=== PATIENT | female | born 1970 | race Caucasian/White ===

== ENCOUNTER 2024-08-08 18:57 | Emergency (ER) | payer OTHER, SELFPAY ==
--- OUTSIDE RECORDS SUMMARY | 2024-08-08 19:04 | XMS_ITS | Clinical Summary ---
Author Organization [facility] Address [address] [place] [address] Care Team Providers Care Sand Caster Apprentice Name Role Phone Leigh Mckeon APRN-CASER UP Unavailable Unavailable Lisa Manzano PA-C Primary Care Provider [phone] Source Comments [facility],non-owned Affiliates and Associated Physician Practices is amultiple site organization consisting of ambulatory clinics and hospital sitesin [place], [place], [place] and [place]. This disclosure is being madepursuant to the Care Everywhere program and may not contain all information available regarding this patient. Last updated 17.[facility] Allergies No known active allergies Medications * This document contains information received from the source organization and may not represent a complete record from that organization. * Be aware that medications may not be up to date on this document. Alwaysverify current medications with the patient. multivitamin daily (THERAGRAN) tablet Take 1 Tab by mouth daily with food Active fluticasone propionate (FLONASE) 50 MCG/ACT nasal sprayIndication s:Non-recurrent acute allergic otitis media of right ear [place] 2 (two) sprays into each nostril once daily 15.8 Each 2 Active Additional Information Patient not taking.Reported on 07/27/2021 loratadine (CLARITIN) 10 MG tablet Take 1 (one) tablet by mouth once daily 30 tablet 2 Active levothyroxine (SYNTHROID) 150 MCG tablet Take 1 (one) tablet by mouth once daily 90 tablet 1 2 Active escitalopram (LEXAPRO) 20 MG tabletIndicatio ns:Depression with anxiety Take 1 (one) tablet by mouth once daily 90 tablet 1 2 Active vitamin D, ergocalciferol, (DRISDOL) 1.25 MG (45098 UT) capsule Take 1 (one) capsule by mouth every 7 days 4 capsule 2 2 Active Active Problems Problem Noted Date Diagnosed Date Abnormal vaginal Pap smear-MONITORED BY DR. SAMANTHA MCINTYRE 06/19/2018 Inclusion cyst 12/22/2015 Cyst of skin and subcutaneous tissue 11/17/2015 Acquired hypothyroidism 05/19/2015 Depression with anxiety 05/19/2015 Smoker 06/13/2014 Resolved Problems Problem Noted Date Diagnosed Date Resolved Date Obesity (BMI 30.0-34.9) 11/15/201608/2017 Hypothyroidism 07/04/2013 05/19/2015 Immunizations Immunization Administration Dates Next Due INFLUENZA VACCINE, TRIV. (AF LURIA, FLUZONE TRIVALENT; 6MO+) (IIV3) 01/15/2014,01/24/2013 Covid Pfizer primary Monoval ent 12+ yr 0.3ml 05/11/2021 Covid Pfizer primary monoval ent 12+ yr 0.3mL Purple cap 08/21/2020 INFLUENZA VACCINE 02/06/2018, 7,02/22/2017,2015,05/19/2015,02/12/2015 INFLUENZA VACCINE, QUADR. (F LUZONE; FLULAVAL; FLUARIX; AFLURIA QUADRIVALENT; 6MO+), 0.5 ML (IIV4) 02/12/2021,02/12/2019,02/05/2018 TD VACCINE 11/24/2002 TDAP (7yrs+) 10/20/2015 Family History Medical History Relation Name Comments Heart Disease Maternal Grandfather Heart Disease Maternal Grandmother Liver Disease Mother Cancer - Breast Paternal Aunt great aunt great pat a unt Heart Disease Paternal Grandfather Aneurysm Paternal Grandmother Cancer - Ovarian Neg Hx Relation Name Status Comments Father Alive Maternal Grandfather Maternal Grandmother Mother Paternal Aunt great aunt Paternal Grandfather Paternal Grandmother Social History Tobacco Use Types Packs/Day Years Used Date Smoking Tobacco: Former Cigarettes 1 25 0 07/03/1994 - 07/04/2019 Smokeless Tobacco: Never Tobacco Cessation:Ready to Q uit: No; Counseling Given: Yes Alcohol Use Standard Drinks/Week Comments Yes 0 (1 standard drink = 0.6 oz pur e alcohol) occ PHQ-2 Answer Date Recorded PHQ2 TOTAL SCORE 6 07/27/2021 Comments No Sex and Gender Information Value Date Recorded Sex Assigned at Not on file Legal Sex Female 10:45 AM CDT Gender Identity Not on file Sexual Orientation Not on file Last Filed Vital Signs Vital Sign Reading Time Taken Comments Blood Pressure 120/78 07/27/2021 11:18 AM CDT Pulse 70 07/27/2021 11:18 AM CDT Temperature 36.6 C (97.9 F) 07/27/2021 11:18 AM CDT Respiratory Rate 18 05/11/2021 4:37 PM DREDGEMASTER Oxygen Saturation 98% 07/27/2021 11:18 AM CDT Inhaled Oxygen Concentration - - Weight 105.7 kg (233 lb) 07/27/2021 11:18 AM CDT Height 165.1 cm (5' 5 ) 07/27/2021 11:18 AM CDT Body Mass Index 38.77 07/27/2021 11:18 AM CDT Plan of Treatment Health Maintenance Due Date Last Done Comments COLOGUARD (AGES 45-75) - COLON CA SCREENING 1972 COLON MONITORING 1972 COLONOSCOPY - COLON CA SCREENING 1972 CT COLONOGRAPHY - COLON CA SCREENING 1972 Colorectal Cancer Screening 1972 FIT - COLON CA SCREENING 1972 FLEX SIG - COLON CA SCREENING 1972 HEPATITIS B VACCINE (1 of 3 - 19+ 3-dose series) 08/11/1991 PAP with HPV 04/18/2022 04/18/2017, 02/16/2016 PNEUMOCOCCAL VACCINE 50+ (1 of 1 - PCV) 2022 ZOSTER VACCINE (1 of 2) 2022 MAMMOGRAM 01/19/2023 01/19/2021, 0807/2019, 07/17/2018, Additional history exists COVID-19 VACCINE ( season) 2023 05/11/2021, 08/21/2020, 07/31/2020 DEPRESSION SCREENING 04/04/2024 SCREENING FOR DIABETES 07/27/2024 2, 07/27/2021, 01/19/2021, Additional history exists INFLUENZA VACCINE (Season Ended) 2024 02/12/2021, 02/12/2019, 02/06/2018, Additional history exists DTAP/TDAP/TD VACCINES (3 - Td or Tdap) 10/19/2025 10/20/2015, 11/24/2002 LIPID TESTING 01/19/2026 01/19/2021, 06/02, 04/25/2017, Additional history exists HEPATITIS C SCREENING Completed 02/16/2016 HIV SCREENING Completed 02/16/2016 HIB VACCINE Aged Out No longer eligi ble based on patient's age to complete this topic HPV VACCINE Aged Out No longer eligi ble based on patient's age to complete this topic MENINGOCOCCAL (Group B) VACCINE SHARED DECISION-MAKING Aged Out No longer eligible based on patient's age to complete this topic MENINGOCOCCAL GROUPS A/C/Y/W VACCINE Aged Out No longer eligible based on patient's age to complete this topic Procedures Procedure Name Priority Date/Time Associated Diagnosis Comments HEMOGLOBIN A1C Routine 07/27/2021 11:52 AM CDT Fatigue, unspecified type-for the last few months, since having covid LIPID PROFILE Routine 01/19/2021 1:05 PM CDT Routine health maintenance MAMMO BILAT SCREENING Routine 01/19/2021 11:59 AM CDT Visit for screening mammogram PAP LB CT+GC VONNIE +HPV HR DNA Routine 04/18/2017 10:25 AM DREDGEMASTER Cervical smear, as part of routine gynecological examination Special screening examination for human papillomavirus (HPV) HEPATITIS C AB W RFLX VERIFICATION Routine 02/16/2016 10:13 AM DREDGEMASTER Well woman exam with routine gynecological exam Concern about STD in female without diagnosis Unprotected sexual intercourse HIV-1 HIV-2 ANTIGEN/ANTIBODY W RFLX Routine 02/16/2016 10:13 AM DREDGEMASTER Well woman exam with routine gynecological exam Concern about STD in female without diagnosis Unprotected sexual intercourse from Last 3 Months or Most Recently Relevant to Health Maintenance Results * HEMOGLOBIN A1C (07/27/2021 11:52 AM CDT) Hemoglobin A1c 4.6 4.2 - 5.6 % 07/27/2021 5:42 PM CDT [facility] Estimated Average Glucose 85 mg/dL 07/27/2021 5:42 PM CDT [facility] Blood BLOOD SPECIMEN WITH EDTA / Unknown Venipuncture / Unknown 07/27/2021 11:52 AM CDT 07/27/2021 11:52 AM CDT Narrative [facility] - 07/27/2021 5:42 PM CDT The following cutoff levels are recommended by [place] [employer]. A1c > 6.5% : considered as diabetes if two separate tests >6.5% or in an appropriate clinical setting. A1c 5.7% - 6.4% : considered as prediabetes (suggest increased risk for diabetes and cardiovascular disease) Control target level: Should be individualized. < 7 for general (non-) , < 8% less stringent goal, < 6.5 more stringent goal. Hemoglobin A1c measurements are used as an aid in the diagnosis of diabetic mellitus, as an aid to identify patients who may be at the risk for developing diabetic mellitus, and for the monitoring long-term blood glucose control in individuals with diabetes mellitus. This test should not replace glucose testing for patients with Type 1 diabetes, pediatric patients, or women. Falsely low HbA1c results may be observed in patients with clinical conditions that shorten erythrocyte life span or decrease mean erythrocyte age such as the presence of unstable hemoglobin variants, elevated hemoglobin F level or other causes of hemolytic anemia . HbA1c may not accurately reflect glycemic control when clinical conditions that affect erythrocyte survival are present. Severe Iron deficiency anemia may yield falsely high results. Hemoglobin A1c assay should not be used to diagnose or monitor diabetes in patients with malignancy, recent blood transfusion, chronic kidney or liver disease. This method may yield falsely low results when hemoglobin (HbF) exceeds 5% in the specimen. us Lisa Manzano PA-C LAB - CHEMISTRY ORDERABLES Fin al Result [facility] [address] [place] [address], [place] * (ABNORMAL) LIPID PROFILE (01/19/2021 1:05 PM CDT) Cholesterol 150 <200 mg/dL 01/19/2021 5:58 PM CDT [facility] Triglycerides 65 <150 mg/dL 01/19/2021 5:58 PM CDT [facility] HDL Cholesterol 39(L) >40 mg/dL 5:58 PM CDT [facility] Chol HDL Ratio 3.8 1.0 - 6.0 01/19/2021 5:58 PM CDT [facility] LDL Calculated 98 65 - 130 mg/dL 01/19/2021 5:58 PM CDT [facility] VLDL Calculated 13 <=30 mg/dL 5:58 PM CDT [facility] Blood BLOOD SPECIMEN / Unknown Venipuncture / Unknown 01/19/2021 1:05 PM CDT 01/19/2021 1:05 PM CDT Narrative [facility] - 01/19/2021 5:58 PM CDT Lipid Profile Comment: CHOLESTEROL LEVEL..................CLINICAL INTERPRETATION LESS THAN 200 MG/DL..............................DESIRABLE 200-239 MG/DL..............................BORDERLINE HIGH GREATER THAN 240 MG/DL................................HIGH LDL-CHOLESTEROL LEVEL..............CLINICAL INTERPRETATION LESS THAN 100 MG/DL................................OPTIMAL 100-129 MG/DL.................................NEAR OPTIMAL GREATER THAN 160 MG/DL...........................HIGH RISK HDL RISK LEVEL GREATER THEN 60 MG/DL............................DECREASED 40-60 MG/DL........................................AVERAGE LESS THAN 40 MG/DL...............................INCREASED TRIGLYCERIDE LEVEL..................CLINICAL INTERPRETATION LESS THAN 150 MG/DL...............................DESIRABLE 150-199 MG/DL...............................BORDERLINE HIGH 200-499 MG/DL..........................................HIGH GREATER THAN 500..................................VERY HIGH THE NATIONAL CHOLESTEROL EDUCATION PROGRAM HAS SET THE ABOVE GUIDELINES (REFERANCE VALUES) FOR CHOLESTEROL AND HDL. RISK ASSOCIATED WITH CHOLESTEROL/HDL RATIOS RISK....................MALE RATIO.............FEMALE RATIO 1/2 AVERAGE.................<3.4.......................<3.3 LOW RISK.................... 4.0 ...................... 3.8 AVERAGE..................... 5.0 ...................... 4.5 2X AVERAGE.................. 9.5 ...................... 7.0 3X AVERAGE...................>23........................>11 us Lisa Manzano PA-C LAB - CHEMISTRY ORDERABLES Fin al Result Performing Organization Address City/State/[facility] Co de Phone Number [facility] [address] * EBER SCREENING BILATERAL DIGITAL [id number] (01/19/2021 11:59 AM CDT) Anatomical Region Laterality Modality Breast Bilateral Mammography 01/19/2021 2:41 PM CDT Impressions 01/19/2021 2:43 PM CDT BI-RADS category : 2 Benign Findings. RECOMMENDATION: Routine annual screening. A). A negative report should not delay a biopsy if a dominant or clinically suspicious mass is present. B). Adenosis and dense breasts may obscure an underlying neoplasm. C). Study interpreted with computer-aided detection. MQSA BI-RADS Categories: Category 0 - needs additional imaging evaluation. Category 1 - negative. Category 2 - benign findings. Category 3 - probably benign findings, but short interval follow up is recommended. Category 4 - suspicious abnormality-biopsy should be considered. Category 5 - highly suggestive of malignancy and appropriate action should be taken. *Reading Radiologist: Maciej Oneill on 01/19/2021 at 2:43 PM Narrative 01/19/2021 2:43 PM CDT PROCEDURE: MAMMO BILAT SCREENING 01/19/2021 11:59 AM HISTORY: Encounter for screening mammogram for malignant neoplasm of breast. FINDINGS AND IMPRESSION: COMPARISON: Prior study/studies dating back to 2016 FINDINGS: Digital 2-D mammography with CAD was performed and reviewed. 3-D tomosynthesis was performed of the breast(s) in the MLO projection and reviewed. BREAST COMPOSITION: There are scattered areas of fibroglandular density. No masses or abnormal calcifications documented. No change has occurred. Lisa Manzano PA-C MAMMO ORDERABLES Final Result * (ABNORMAL) PAP LB CT+GC VONNIE +HPV HR DNA (04/18/2017 10:25 AM DREDGEMASTER) Diagnosis (A) [facility] ACCOUNT BILL Comment: EPITHELIAL CELL ABNORMALITY. LOW-GRADE SQUAMOUS INTRAEPITHELIAL LESION (LGSIL); MILD DYSPLASIA IS PRESENT. Recommendation (A) [facility] ACCOUNT BILL Comment:Suggest follow up as clinically appropriate. Specimen Adequacy [facility] ACCOUNT BILL Comment: Satisfactory for evaluation. Endocervical and/or squamous metaplastic cells (endocervical component) are present. Clinician Provided ICD10 [facility] ACCOUNT BILL Comment: Z01.419 Z11.51 N92.6 Performed by [facility] ACCOUNT BILL Comment:Randell Casas, Cytote chnologist (ASCP) Electronically Signed by [facility] ACCOUNT BILL Comment:Christie Hairston MD, Pa thologist Comment . [facility] ACCOUNT BILL Pathologist Provided ICD10 [facility] ACCOUNT BILL Comment:R87.612 Note [facility] ACCOUNT BILL Comment: The Pap smear is a screening test designed to aid in the detection of premalignant and malignant conditions of the uterine cervix. It is not a diagnostic procedure and should not be used as the sole means of detecting cervical cancer. Both false-positive and false-negative reports do occur. . Human papillomavirus High Risk Positive(A) Negative [facility] ACCOUNT BILL Comment: This high-risk HPV test detects thirteen high-risk types (16/18/31/33/35/39/45/51/52/56/58/59/68) without differentiation. . Chlamydia VONNIE Thin Prep Negative Negative [facility] ACCOUNT BILL GC DNA Probe Negative Negative [facility] ACCOUNT BILL PART OF UTERINE CERVIX / Unknown 04/18/2017 10:25 AM DREDGEMASTER 04/19/2017 Narrative [facility] ACCOUNT BILL - 04/22/2017 11:14 AM DREDGEMASTER Source.............Cervix LMP / Prev Treat...TNS=[id number];None Other..............Oral Contraceptives No. of containers..01 ThinPrep Vial Resulting Agency Comment [facility] [address] [place] [address] Pawan DELANEY [id number] Leigh Mckeon [facility] - PATHOLOGY/CYTOLOGY ORD ERABLES Final Result [facility] ACCOUNT BILL [address] [place] [address] * HEPATITIS C AB W RFLX ALT AB (PO REF LAB) (02/16/2016 10:13 AM DREDGEMASTER) Hepatitis C Antibody <0.1 0.0 - 0.9 s/co ratio [facility] ACCOUNT BILL BLOOD SPECIMEN / Unknown 02/16/2016 10:13 AM DREDGEMASTER 02/16/2016 Narrative Resulting Agency [facility] [address] [facility] [id number] Leigh Mckeon [facility] LAB - CHEMISTRY ORDERABLES F inal Result [facility] ACCOUNT BILL [address] [place] [address] * HIV-1 HIV-2 ANTIGEN/ANTIBODY W RFLX (PO) (02/16/2016 10:13 AM DREDGEMASTER) HIV Screen 4th Generation w Reflex Non Reactive Non Reactive [facility] ACCOUNT BILL Blood BLOOD SPECIMEN / Unknown 02/16/2016 10:13 AM DREDGEMASTER 02/16/2016 Narrative Resulting Agency Comment [facility] [address] [facility] [phone] Leigh Mckeon [facility] LAB - SEROLOGY ORDERABLES Fi nal Result [facility] ACCOUNT BILL [address] [place] [address] from Last 3 Months or Most Recently Relevant to Health Maintenance Insurance [employer] Care Teams Sand Caster Apprentice Relationship Specialty Start Date End Date Lisa Manzano PA-C [address] [place] [address] PCP - General Physician Examining Officer 06/19/18 Leigh Mckeon APRN-CASER UP Nurse Practitioner 02/13/16
--- OUTSIDE RECORDS SUMMARY | 2024-08-08 19:05 | XMS_ITS | Encounter Summary ---
Author Organization [facility] Address [address] [place] [address] Care Team Providers Care Computer Education Professor Name Role Phone Unknown, Notinfile Unavailable Unavailable Rafaela Johnson MD Primary Care Pro vider Reason for Referral * Consultation (Routine) - Pending Review Specialty Diagnoses / Procedures Referred By Sergey alonso Referred To Contact Otolaryngology Diagnoses Right ear pain Facial swelling Impacted cerumen, unspecified laterality Rafaela Johnson MD [facility] [address] Phone: tel: fax: Laine Talley MD [address] [place] [address] Phone: tel: fax: Referral ID Status Reason Start Date Expiration Date Visits Requested Visits Authorized [id number] Pending Review Specialty Services Required 08/06/2024 09/05/2025 1 1 Question Answer Please select the performing region: External Order [171] To provider: LAINE TALLEY [[id number]] Reason for Visit * Reason Onset Date Comments Recommendation Request 08/03/2024 Encounter Details Date Type Department Care Team ([facility] st Contact Info) Description 08/03/2024 Telephone [facility] [place] [address] [phone] Rafaela Johnson MD [facility] [address] [address] Recommendation Request Social History Tobacco Use Types Packs/Day Years Used Date Smoking Tobacco: Former Cigarettes Q uit: 04/04/2019 AUDIT-C Answer Date Recorded Frequency of Alcohol Consumption Not on file 01/27/2024 Q2: How many drinks containi ng alcohol do you have on a typical day when you are drinking? Patient does not drink Frequency of Binge Drinking Not on file 01/03 PHQ-2 Answer Date Recorded PHQ-2 Total Score (If total score is 3 or more points, staff should administer the PHQ-9) 2 06/15/2024 PHQ-9 Answer Date Recorded PHQ-9 Total Score 8 06/15/2024 Personal Safety Answer Date Recorded Have you ever been in or are you currently in a harmful physical or emotional relationship or is someone making you feel afraid or unsafe? Denies 08/23/2022 Comments No Sex and Gender Information Value Date Recorded Sex Assigned at Not on file Legal Sex Female 2:36 AM [facility] Gender Identity Not on file Sexual Orientation Not on file documented as of this encounter Miscellaneous Notes * Telephone Encounter - Nata Mazariegos MA - 08/06/2024 1:19 PM CDT Referral placed. * Telephone Encounter - Mago Mendoza - 08/03/2024 4:12 PM CDT Call Back Caller???s Concern: Patient said her right ear has a lot of wax and her left one is swollen underneath it as well as her jaw line. Her dentist has looked at her teeth and said none of them as abscessed. Does message need to be routed? Yes-Action Needed * Telephone Encounter - Nata Mazariegos MA - 08/03/2024 1:51 PM CDT Lmov for pt to return call. Need to know exactly what problems she is having with her ears. Both ears? Referral pended to cindy Carroll in [place]. Awaiting pt return call * Telephone Encounter - Marge Dickerson - 08/03/2024 1:39 PM CDT Recommendation Request Note: This request is for a specialty recommendation, not an insurance referral. Specialty: ENT Why does the patient want to go to this specialist? Problems with ears Additional Comments/Concerns: Patient would like to go to an ENT in [place] or [place] if possible. Does message need to be routed? Yes-Action Needed documented in this encounter Plan of Treatment Scheduled Referrals Name Type Priority Associated Diagnoses Order Schedule Ambulatory referral to ENT Outpatient Referral Routine Right ear pain Facial swelling Impacted cerumen, unspecified laterality 1 Occurrences starting 08/06/2024 until 08/03/2025 documented as of this encounter Visit Diagnoses Diagnosis Right ear pain- Primary Unspecified otalgia Facial swelling Swelling, mass, or lump in head and neck Impacted cerumen, unspecified laterality documented in this encounter Care Teams Computer Education Professor Relationship Specialty Start Date End Date Rafaela Johnson MD PCP - General Family Medicine 07/19/22 Unknown, Notinfile 05/17/22 documented as of this encounter
--- OUTSIDE RECORDS SUMMARY | 2024-08-08 19:05 | XMS_ITS | Clinical Summary ---
Author Organization [facility] Address [address] [place] [address] Care Team Providers Care Bed Rubber Name Role Phone Oseas Johnson PA-C Primary Care Provid er Allergies No known active allergies Medications HYDROcodone-acet aminophen (NORCO) 5-325 MG tabletIndication s:Acute Pain < 7 Day Supply Take 1 tablet by mouth every 6 (six) hours as needed. Indications : Acute Pain < 7 Day Supply 20 tablet 11/10/2023 Active escitalopram (LEXAPRO) 20 MG tablet Take 1 tablet (20 mg total) by mouth daily. 10/12/2023 Active levothyroxine (SYNTHROID) 150 MCG tablet Take 1 tablet (150 mcg total) by mouth daily. 10/12/2023 Active Active Problems Problem Noted Date Diagnosed Date Cellulitis 11/10/2023 Facial swelling 05/20/2023 Overview (11/10/2023): Last Assessment & Plan: Swelling to left side of face/parotid area, tenderness to left submandibular region No overlying erythema or warmth Possibly r/t recent dental work vs salivary gland infection Will start Augmentin and medrol Ice, ibuprofen or tylenol prn F/u with PCP or dentist if not improving, ER if worsening MANOJ (obstructive sleep apnea) 11/15/2022 Overview (11/10/2023): Last Assessment & Plan: Patient continue to wear CPAP 16 cm water pressure while sleeping. Her DME is [facility]. I have advised the patient to try mole skin to help with her nose until she is able to get a new CPAP mask. The patient does not have an open area or any redness on her nose currently. Annual physical exam 07/19/2022 Overview (11/10/2023): Last Assessment & Plan: Reviewed PMH & FH Reviewed medications and supplements HCM: orders placed as needed Abnormal vaginal Pap smear 06/19/2018 Inclusion cyst 12/22/2015 Cyst of skin and subcutaneous tissue 11/17/2015 Acquired hypothyroidism 05/19/2015 Overview (11/10/2023): Last Assessment & Plan: Lab Results Component Value Date TSH 0.41 09/16/2022 controlled Continue 175mcg levothyroxine Depression with anxiety 05/19/2015 Overview (11/10/2023): Last Assessment & Plan: Stable Continue 20mg lexapro Smoker 06/13/2014 Family History Medical History Relation Comments No Known Problems Brother 1 Lupus Brother 2 Rheumatoid Arthritis Brother 2 Cancer Father Cirrhosis Mother Relation Status Comments Brother 1 Alive Brother 2 Alive Father Alive Mother Social History Tobacco Use Types Packs/Day Years Used Date Smoking Tobacco: Never Smokeless Tobacco: Never Tobacco Cessation:Counseling Given: Not Answered [facility] Utilities Answer Date Recorded In the past 12 months has [employer], oil, or water [employer] threatened to shut off services in your home? No 11/10/2023 Humiliation, Afraid, Rape, and Kick questionnair e Answer Date Recorded Within the last year, have y ou been afraid of your partner or ex-partner? No 11/10/2023 Within the last year, have y ou been humiliated or emotionally abused in other ways by your partner or ex-partner? No Within the last year, have y ou been kicked, hit, slapped, or otherwise physically hurt by your partner or ex-partner? No 11/10/2023 Within the last year, have y ou been raped or forced to have any kind of sexual activity by your partner or ex-partner? No 11/10/2023 Overall Financial Resource Strain (CARDIA) Answe r Date Recorded How hard is it for you to pa y for the very basics like food, housing, medical care, and heating? Not hard at all 11/10/2023 Hunger Vital Sign Answer Date Recorded Within the past 12 months, y ou worried that your food would run out before you got the money to buy more. Never true 11/10/19 24 Within the past 12 months, t he food you bought just didn't last and you didn't have money to get more. Never true 11/10/2023 PRAPARE - Transportation Answer Date Re corded In the past 12 months, has l ack of transportation kept you from medical appointments or from getting medications? No 11/2023 In the past 12 months, has l ack of transportation kept you from meetings, work, or from getting things needed for daily living? No 11/10/2023 Housing Stability Vital Sign Answer Tramaine e Recorded In the last 12 months, was t here a time when you were not able to pay the mortgage or rent on time? No 11/10/2023 In the past 12 months, how m any times have you moved where you were living? 1 11/10/2023 At any time in the past 12 m [address] [place], were you homeless or living in a assisted (including now)? No 11/10/2023 Comments Unknown Sex and Gender Information Value Date Recorded Sex Assigned at Not on file Legal Sex Female 9:27 AM CDT Gender Identity Not on file Sexual Orientation Not on file Last Filed Vital Signs Vital Sign Reading Time Taken Comments Blood Pressure 126/76 11/12/2023 11:20 AM CDT Pulse 59 11/12/2023 11:20 AM CDT Temperature 36.5 C (97.7 F) 11/12/2023 11:20 AM CDT Respiratory Rate 18 11/12/2023 11:20 AM CDT Oxygen Saturation 97% 11/12/2023 11:20 AM CDT Inhaled Oxygen Concentration - - Weight 109.8 kg (242 lb 1 oz) 11/11/2023 3:50 AM CDT Height 165.1 cm (5' 5 ) 11/10/2023 5:28 PM CDT Body Mass Index 40.28 11/10/2023 5:28 PM CDT Plan of Treatment Health Maintenance Due Date Last Done Comments Colorectal Cancer Screening Colonoscopy (10 Years) 1972 Annual Physical 08/11/1975 Hepatitis C 1990 Hepatitis B Vaccines (1 of 3 - 19+ 3-dose series) 08/11/1991 Cervical Cancer Screening Pap with HPV Testing (Age 30 to 64) Every 5 Years 2002 Pneumococcal Vaccine: 50+ Years (1 of 1 - PCV) 2022 Zoster Vaccines (1 of 2) 2022 COVID-19 Vaccine ( - 2023- season) 2023 05/11/2021, 08/21/2020, 07/31/2020 Mammogram Screening 07/23/2024 07/23/2022, 01/19/2021, 11/26/2019, Additional history exists Cervical Cancer Screening Pap Smear (Age 30 to 64) Every 3 Years 09/06/2025 09/06/2022 Cervical Cancer Screening with HPV 09/06/2025 DTaP, Tdap and Td Vaccines (2 - Td or Tdap) 10/19/2025 10/20/2015, 11/24/2002 Meningococcal B Vaccine Aged Out No l onger eligible based on patient's age to complete this topic Meningococcal Vaccine Aged Out No mejia arben eligible based on patient's age to complete this topic RSV Immunizations Under 20 Months Aged Out No longer eligible based on patient's age to complete this topic Insurance [employer] Member Subscriber Plan / Payer (Ef fective 2023-Present) Name:Babs Jay Relation to Subscriber:Self Name:Babs Jay Payer ID:Not on file Group ID:Not on file Type:Not on file Address: [facility] [id number] Advance Directives * Full Code (Latest Code Status on File) Date Activated Date Inactivated Comments 11/10/2023 6:07 PM 11/12/2023 4:35 PM Care Teams Bed Rubber Relationship Specialty Start Date End Date Oseas Johnson PA-C [address] [facility] [place] [address] PCP - General PHYSICIAN STORE SALES CONSULTANT 11/10/23
--- OUTSIDE RECORDS SUMMARY | 2024-08-08 19:05 | XMS_ITS | Referral Summary ---
Author Organization [facility] at the Medical Office Building Address [address] [place] [id number] Care Team Providers Care Under Cutting Machine Operator Name Role Phone Unknown, Notinfile Unavailable Unavailable Rafaela Johnson MD Primary Care Pro vider Encounters Date Type Department Care Team Description 08/03/2024 Telephone [facility] Primary Care at [address] [place] [address] Rafaela Johnson MD Recommendation Request 06/28/2024 3:15 PM CDT Office Visit [facility] Pulmonary [address] [place] [address] Elsa Eubanks NP MANOJ (obstructive sleep apnea) (Primary Dx) 06/15/2024 2:15 PM CDT Office Visit [facility] Primary Care at [address] [place] [address] Rafaela Johnson MD Depression with anxiety (Primary Dx); Cigarette nicotine dependence without complication; Need for vaccination; Annual physical exam; Class 3 severe obesity due to excess calories with serious comorbidity and body mass index (BMI) of 40.0 to 44.9 in adult (HCC) 05/22/2024 3:15 PM HOME STEREO EQUIPMENT INSTALLER Office Visit [facility] Obstetrical Gynecology [address] [place] [address] [address] [place] [address] Abbi Jay CNM Well woman exam (Primary Dx) 05/17/2024 Orders Only [facility] [address] [place] [address] Rafaela Johnson MD Pulmonary emphysema, unspecified emphysema type (HCC) (Primary Dx) 05/17/2024 2:04 PM HOME STEREO EQUIPMENT INSTALLER - 05/17/2024 11:59 PM HOME STEREO EQUIPMENT INSTALLER Hospital Encounter [facility] [address] [place] [address] Cigarette nicotine dependence without complication; Encounter for screening for lung cancer Discharge Disposition: Discharge to home or self care from Last 3 Months Allergies No known active allergies Medications multivitamin tablet Take 1 tablet by mouth 3 (three) times a day with meals Active levothyroxine (SYNTHROID) 150 mcg tabletIndications: Acquired hypothyroidism Take 1 tablet (150 mcg total) by mouth cornice upholsterer before breakfast 90 tablet 3 4 01/27/20 25 Active albuterol HFA (PROVENTIL HFA,VENTOLIN HFA,PROAIR HFA) 90 mcg/actuation inhalerIndications :Pulmonary emphysema, unspecified emphysema type (HCC) Inhale 2 puffs every 6 (six) hours as needed for wheezing 1 each 1 5 05/17/19 26 Active buPROPion XL (WELLBUTRIN XL) 300 mg 24 hr tabletIndications: Cigarette nicotine dependence without complication,Depre ssion with anxiety Take 1 tablet (300 mg total) by mouth every morning 90 tablet 2 5 06/16/19 26 Active escitalopram (LEXAPRO) 20 mg tabletIndications: Depression with anxiety Take 1 tablet (20 mg total) by mouth daily 90 tablet 2 5 06/16/19 26 Active Active Problems Problem Noted Date Diagnosed Date Cigarette nicotine dependence without complicati on 01/27/2024 Assessment & Plan (06/15/2024 2:24 PM CDT): Encourage cessation continue wellbutrin Assessment & Plan (04/13/2024 10:19 AM HOME STEREO EQUIPMENT INSTALLER): Encourage cessation Will increase wellbutrin Assessment & Plan (01/27/2024 3:27 PM CDT): Encourage cessation Will restart wellbutrin Facial swelling 05/20/2023 Assessment & Plan (05/20/2023 2:36 PM HOME STEREO EQUIPMENT INSTALLER): Swelling to left side of face/parotid area, tenderness to left submandibular region No overlying erythema or warmth Possibly r/t recent dental work vs salivary gland infection Will start Augmentin and medrol Ice, ibuprofen or tylenol prn F/u with PCP or dentist if not improving, ER if worsening MANOJ (obstructive sleep apnea) 11/15/2022 Assessment & Plan (06/28/2024 3:52 PM CDT): The patient will continue to wear CPAP at 16 cm water pressure while sleeping. Her DME is [facility] Assessment & Plan (01/27/2024 3:08 PM CDT): Following with sleep med continue CPAP Assessment & Plan (06/23/2023 3:23 PM CDT): Patient continue to wear CPAP 16 cm water pressure while sleeping. Her DME is [facility]. I have advised the patient to try mole skin to help with her nose until she is able to get a new CPAP mask. The patient does not have an open area or any redness on her nose currently. Assessment & Plan (02/21/2023 2:46 PM HOME STEREO EQUIPMENT INSTALLER): Due to continued symptoms, the patient will continue CPAP at 16 cm water pressure. Denied need for supplies. DME is [facility]. I have provided the patient F30 mask and requested the patient reach out to [facility] in order to change her style mask Due to the sore on the nose Assessment & Plan (01/17/2023 2:36 PM CDT): Following with sleep med Starting CPAP Assessment & Plan (11/15/2022 10:37 AM CDT): The patient presents with snoring and excessive daytime hypersomnia. I have recommended proceeding with a nocturnal polysomnogram with a split night protocol if necessary and no MSLT. She will follow up here in 3 months. Annual physical exam 07/19/2022 Assessment & Plan (01/27/2024 3:09 PM CDT): Reviewed PMH & FH Reviewed medications and supplements HCM: orders placed as needed Assessment & Plan (01/17/2023 2:35 PM CDT): Reviewed PMH & FH Reviewed medications and supplements HCM: orders placed as needed Acquired hypothyroidism 07/19/2022 Assessment & Plan (01/27/2024 3:08 PM CDT): Lab Results Component Value Date TSH 1.11 01/21/2024 controlled Continue 175mcg levothyroxine Assessment & Plan (01/17/2023 2:37 PM CDT): Lab Results Component Value Date TSH 0.41 09/16/2022 controlled Continue 175mcg levothyroxine Assessment & Plan (07/19/2022 3:33 PM CDT): Check tsh Continue 150mcg levothyroxine pending results Depression with anxiety 07/19/2022 Assessment & Plan (06/15/2024 2:23 PM CDT): Improved Continue wellbutrin 300mg Continue 20mg lexapro Assessment & Plan (04/13/2024 10:19 AM HOME STEREO EQUIPMENT INSTALLER): Improved, but persistently uncontrolled Increase wellbutrin Continue 20mg lexapro Assessment & Plan (01/27/2024 3:31 PM CDT): Uncontrolled Add wellbutrin Continue 20mg lexapro Assessment & Plan (01/17/2023 2:36 PM CDT): Stable Continue 20mg lexapro Assessment & Plan (07/19/2022 3:32 PM CDT): Stable Continue 20mg lexapro Immunizations Immunization Administration Dates Next Due Hep A, Adult 12/15/2021 Influenza, Quadrivalent, Spl it, Preservative Free, Intramuscular 01/17/2023,02/10/2022,02/12/2021,02/12,02/05/2018 Influenza, Trivalent, IM (MDV) 01/15/2014,2012 Influenza, Trivalent, Preser vative Free, Intramuscular 01/27/2024,02/22/2017,01/18/2016,02/12 Influenza, Unspecified 01/11/2022,2017,02/22/2017,01/17,05/19/2015,02/12/2015 Td, Unspecified 11/24/2002 Tdap 10/20/2015 ZOSTER Recombinant 06/15/2024 Social History Tobacco Use Types Packs/Day Years Used Date Smoking Tobacco: Former Cigarettes Q uit: 04/04/2019 Tobacco Cessation:Counseling Given: Not Answered AUDIT-C Answer Date Recorded Frequency of Alcohol [...] on file Legal Sex Female 2:36 AM HOME STEREO EQUIPMENT INSTALLER Gender Identity Not on file Sexual Orientation Not on file Last Filed Vital Signs Vital Sign Reading Time Taken Comments Blood Pressure 122/78 06/28/2024 3:02 PM CDT Pulse 53 06/28/2024 3:02 PM CDT Temperature 35.1 C (95.1 F) 06/28/2024 3:02 PM CDT Respiratory Rate 16 06/28/2024 3:02 PM CDT Oxygen Saturation 99% 06/28/2024 3:02 PM CDT Inhaled Oxygen Concentration - - Weight 111.1 kg (245 lb) 06/28/2024 3:02 PM CDT Height 165.1 cm (5' 5 ) 06/28/2024 3:02 PM CDT Body Mass Index 40.77 06/28/2024 3:02 PM CDT Plan of Treatment Not on file Procedures Procedure Name Priority Date/Time Associated Diagnosis Comments CT LUNG CANCER SCREENING Schedule Routine, Read Routine (OP Routine) 05/17/2024 2:18 PM HOME STEREO EQUIPMENT INSTALLER Cigarette nicotine dependence without complication Encounter for screening for lung cancer HEPATITIS C ANTIBODY Routine 01/21/2024 8:37 AM CDT Encounter for screening for other viral diseases SCREENING MAMMOGRAM BILATERAL W PAULO Schedule Routine, Read Routine (OP Routine) 01/04/2024 7:23 AM CDT Screening mammogram, encounter for PAP AND HIGH RISK HPV, REFLEX TO GENOTYPING Routine 09/06/2022 8:33 AM CDT Well woman exam COLONOSCOPY 08/23/2022 11:50 AM CDT from Last 3 Months or Most Recently Relevant to Health Maintenance Results * CT Lung Cancer Screening (05/17/2024 2:18 PM HOME STEREO EQUIPMENT INSTALLER) Anatomical Region Laterality Modality Chest N/A Computed Tomogra phy 05/17/2024 2:46 PM HOME STEREO EQUIPMENT INSTALLER Narrative 05/17/2024 2:51 PM HOME STEREO EQUIPMENT INSTALLER EXAM DESCRIPTION: CT LUNG CANCER SCREENING REASON FOR STUDY: Screening CT of the chest in a former smoker with a 61.5-91.5 pack year smoking history. Additional history: None. TECHNIQUE: Low dose CT scan of the chest was performed without intravenous contrast using helical scanning technique. The exam extends from the lung apices through the lung bases. Automatic exposure control was used as a dose optimization technique. NOTE: This study was performed for the specific purposes of lung cancer screening and is not an alternative to diagnostic chest CT. RADIATION DOSE: CT dose index volume (CTDIvol) = 2.89 mGy COMPARISON: None FINDINGS: SMOKING RELATED LUNG DISEASE: There are mild emphysematous changes of lungs with scattered mild subsegmental atelectasis and scarring. There is mild biapical pleural thickening and scarring. There is no definite evidence of a pneumothorax. The central airways are grossly patent. There is no definite evidence of focal consolidation or pleural effusion. LUNG NODULES: There is a subtle 0.4 cm right upper lobe pulmonary nodule abutting the right minor fissure (axial image 145). There is a subtle 0.2 cm pulmonary nodule in the anterior right middle lobe near the right minor fissure (axial image 146). There is a subtle 0.2 cm pulmonary nodule in the anterolateral left lower lobe (axial image 167). CORONARY ARTERY CALCIFICATION: Present. OTHER: There is borderline cardiomegaly. There is no definite evidence of pericardial effusion. There are mild atherosclerotic changes of the thoracic aorta and coronary vessels. There is no definite unenhanced CT evidence of mediastinal, hilar, or axillary lymphadenopathy. There are scattered subcentimeter mediastinal lymph nodes noted with the largest measuring 0.6 cm in the precarinal region (axial image 110). The bilateral adrenal glands are grossly stable and unremarkable. The gallbladder is surgically absent. There is a minimal levoscoliotic curvature of the spine with degenerative changes. IMPRESSION: Few scattered small pulmonary nodules with the largest measuring up to 0.4 cm. Mild emphysematous changes of lungs with scattered mild subsegmental atelectasis and scarring. Lung-RADS category 2: Benign appearance or behavior. Recommendation: Low dose Screening CT of chest in 12 months. THIS IS AN ELECTRONICALLY VERIFIED FINAL REPORT 05/17/2024 2:51 PM - Electronically signed by Tiffany Rankin D.O. PS: PS Report ID: [id number] Reading Location: [id number] Procedure Note Tiffany Rankin, DO - 05/17/2024 EXAM DESCRIPTION: CT LUNG CANCER SCREENING REASON FOR STUDY: Screening CT of the chest in a former smoker with a 61.5-91.5 pack year smoking history. Additional history: None. TECHNIQUE: Low dose CT scan of the chest was performed without intravenous contrast using helical scanning technique. The exam extends from the lung apices through the lung bases. Automatic exposure control was used as adose optimization technique. NOTE: This study was performed for the specific purposes of lung cancer screening and is not an alternative to diagnostic chest CT. RADIATION DOSE: CT dose index volume (CTDIvol) = 2.89 mGy COMPARISON: None FINDINGS: SMOKING RELATED LUNG DISEASE: There are mild emphysematouschanges of lungs with scattered mild subsegmental atelectasis and scarring. Thereis mild biapical pleural thickening and scarring. There is no definiteevidence of a pneumothorax. The central airways are grossly patent. There is no definite evidence of focal consolidation or pleural effusion. LUNG NODULES: There is a subtle 0.4 cm right upper lobe pulmonary nodule abutting the right minor fissure (axial image 145). There is a subtle 0.2cm pulmonary nodule in the anterior right middle lobe near the right minor fissure (axial image 146). There is a subtle 0.2 cm pulmonary nodule inthe anterolateral left lower lobe (axial image 167). CORONARY ARTERY CALCIFICATION: Present. OTHER: There is borderline cardiomegaly. There is no definite evidenceof pericardial effusion. There are mild atherosclerotic changes of thethoracic aorta and coronary vessels. There is no definite unenhanced CT evidence of mediastinal, hilar, oraxillary lymphadenopathy. There are scattered subcentimeter mediastinal lymphnodes noted with the largest measuring 0.6 cm in the precarinal region (axialimage 110). The bilateral adrenal glands are grossly stable and unremarkable. The gallbladder is surgically absent. There is a minimal levoscoliotic curvature of the spine with degenerative changes. IMPRESSION: Few scattered small pulmonary nodules with the largest measuring up to0.4 cm. Mild emphysematous changes of lungs with scattered mild subsegmental atelectasis and scarring. Lung-RADS category 2: Benign appearance or behavior. Recommendation: Low dose Screening CT of chest in 12 months. THIS IS AN ELECTRONICALLY VERIFIED FINAL REPORT 05/17/2024 2:51 PM - Electronically signed by Tiffany Rankin D.O. PS: PS Report ID: [id number] Reading Location: [id number] us Rafaela Johnson MD IM CT PROCEDURES Final Result * Hepatitis C antibody Blood (01/21/2024 8:37 AM CDT) Hep C Ab Nonreactive Nonreactive Comment: Antibodies to HCV not detected. Does NOT exclude the possibility of recent exposure to HCV. Current interpretive data was last revised on 21 Interpretive Data Nonreactive: Antibodies to HCV not detected. Does NOT exclude the possibility of recent exposure to HCV. Equivocal: Equivocal for HCV antibodies. Supplemental molecular testing will be automatically performed to determine infection status in accordance with current CDC screening recommendations. Reactive: Positive for HCV antibodies. This may represent current or past HCV infection. Supplemental molecular testing will be automatically performed to determine current infection status in accordance with current CDC screening recommendations. Interpretive data was last revised on 2019. Blood 01/21/2024 8:37 AM CDT 01/21/2024 10:44 AM CDT us Rafaela Johnson MD LAB MICROBIOLOGY - GENERAL ORDERABLES Final Result [address] [id number] [facility] Department [place] [address] * Screening Mammogram Bilateral W Paulo (01/04/2024 7:23 AM CDT) Anatomical Region Laterality Modality Breast Bilateral Mammography Impressions 01/04/2024 8:19 AM CDT BI-RADS ATLAS category (overall): 1 - Negative There is no mammographic evidence of malignancy. A 1 year screening mammogram is recommended. The patient has been or will be contacted. We recommend annual screening mammography for women at average risk of breast cancer beginning at age 40, based on guidelines of the [employer] (ACR Practice Parameter for the Performance of Screening and Diagnostic Mammography) and [employer]. For women with and elevated risk of breast cancer, please refer to the ACR Practice Parameter for specific screening recommendations. The patient will be entered into a reminder system with a target due date of 1 year for her next screening exam. Narrative 01/04/2024 8:19 AM CDT Screening Mammogram Bilateral W Paulo: 01/04/24 The study was acquired using full field digital technology and interpreted from soft copy. 2D digital mammographic views, as well as 3D digital tomosynthesis were performed in the CC and MLO projections. CLINICAL: Screening mammogram, encounter for. No relevant medical history has been documented for this patient. History of breast cancer in Other. COMPARISONS: 07/23/2022 Screening Mammogram Bilateral W Paulo 01/19/2021 Breast Imaging Screening Outside Reference 11/26/2019 SCREENING MAMMOGRAM 2D BILATERAL 07/17/2018 Breast Imaging Screening Outside Reference BREAST TISSUE: There are scattered areas of fibroglandular density. FINDINGS: There is a biopsy marker clip in the right breast. No suspicious masses, suspicious calcifications, or other suspicious findings are seen within either breast. There has been no suspicious change. us Self Screening Mammogram IMG MAMMO PROCEDURES Fi nal Result * Pap and High Risk HPV, reflex to Genotyping (09/06/2022 8:33 AM CDT) Thin prep (Pap test) 09/06/2022 8:33 AM CDT 09/08/2022 8:33 AM CDT Narrative PATHOLOGY [facility] - 09/10/2022 2:09 PM CDT [facility] Department of Pathology [address] [place] [address] Final Report with Addendum Note to Patients: This report may contain a detailed description of human tissue sent by a health care provider to the laboratory for pathologic evaluation. The content of this report is essential for diagnosis and may provide important critical findings. This information may be unfamiliar to patients to review without a medical professional present. It is advised that the patient review this report in the presence of a health care provider who can answer questions and explain the details. Patient Name: JAIME JAY Address: [address] [place] [address] Gender: F : 1970 (Age: 52) Service: Location: N : [id number] [facility] #: [id number] Patient Type: [facility] SPECIMEN Taken: 09/06/2022 Received: 09/08/2022 Accessioned:: 09/09/2022 Reported: 09/10/2022 Physician(s): Meeta Paz M.D. [facility] Diagnosis: SOURCE OF SPECIMEN SCREENING THIN PREP IMAGED PAP w/ HPV: STATEMENT OF ADEQUACY - Specimen satisfactory for interpretation; endocervical/transformation zone component absent or insufficient GENERAL CATEGORIZATION: - Negative for intraepithelial lesion or malignancy MUSA Hurd(ASCP) Report Electronically Reviewed and Signed Out By MUSA Hurd(ASCP) 09/10/2022 14:09:02Addenda: HPV Test Interpretation NEGATIVE for types 16, 18, 31, 33, 35, 39, 45, 51, 52, 56, 58, 59, 66 and 68. Test performed utilizing Gen-Probe Aptima assay. MUSA Barnes(ASCP)Report Electronically Reviewed and Signed Out By MUSA Barnes(ASCP) 09/09/2022 17:06:45 Specimen(s) Received: A: SCREENING THIN PREP IMAGED PAP w/ HPV Clinical History: Menstrual History: Post-menopausal The Pap test is a screening test used to aid in the detection of cervical cancer and its precursors. It should not be the sole means by which malignant and premalignant lesions are diagnosed. Both false negative and false positive results may occur. It also has poor sensitivity for the detection of endometrial lesions and should not be used to evaluate suspected endometrial abnormalities. For these reasons it is most important to obtain Pap tests at regular intervals. The performance characteristics of some immunohistochemical stains, fluorescence in-situ hybridization tests and immunophenotyping by flow cytometry cited in this report (if any) were determined by the Surgical Pathology Department at [facility] as part of an ongoing quality compliance coordinator program and in compliance with federally mandated regulations drawn from the Clinical Laboratory Improvement Act of 1988 (CLIA '88). Some of these tests rely on the use of analyte specific reagents and are subject to specific labeling requirements by the US Food and Drug Administration. Such diagnostic tests may only be performed in a facility that is certified by the Department of Health and Human Services as a high complexity laboratory under CLIA '88. The FDA has determined that such clearance or approval is not necessary. This test is used for clinical purposes. It should not be regarded as investigational or for research. Nevertheless, federal rules concerning the medical use of analyte specific reagents require that the following disclaimer be attached to the report: This test was developed and its performance characteristics determined by the Surgical Pathology Department [facility]. It has not been cleared or approved by the U. S. Food and Drug Administration. us Meeta Paz MD LAB CYTOLOGY ORDERABLES F inal Result PATHOLOGY [facility] * COLONOSCOPY (08/23/2022 11:50 AM CDT) Anatomical Region Laterality Modality Other Narrative Procedure Note John Arechiga MD - 08/23/2022 11:50 AM CDT [facility] GI ENDOSCOPY Patient Name: Jaime Jay Procedure Date: 08/23/2022 11:50 AM Date of : 1970 Admit Type: Outpatient Age: 52 Gender: Female Attending MD: John Arechiga M.D. Room: [facility] ENDOSCOPY ROOM 05 Note Status: Finalized Procedure: Colonoscopy Indications: Screening for colorectal malignant neoplasm Referring MD: Rafaela Johnson M.D. Providers: John Arechiga M.D. Medicines: Monitored Anesthesia Care Complications: No immediate complications. Estimated Blood Loss: Estimated blood loss was minimal. Procedure: The benefits, risks and alternatives of theprocedure and sedation were discussed and informed consentwas obtained. All questions were answered. Please referto the signed informed consent document in the medical record. The scope was passed under direct vision.The [id number] was introduced through theanus and advanced to the cecum, identified byappendiceal orifice and ileocecal valve. The colonoscopy was performed with moderate difficulty due tosignificant looping. Successful completion of the procedure was aided by applying abdominal pressure. The patient tolerated the procedure well. The quality of thebowel preparation was evaluated using the BBPS (BostonBowel Preparation Scale) with scores of: Right Colon = 3, Transverse Colon = 3 and Left Colon = 3 (entiremucosa seen well with no residual staining, smallfragments of stool or opaque liquid). The total BBPS score equals 9. The ileocecal valve, appendiceal orifice, and rectum were photographed. Findings: A 2 mm polyp was found in the cecum. The polyp was sessile. The polyp was removed with a jumbo cold forceps. Resection and retrieval were complete. Six sessile polyps were found in the sigmoid colon. The polyps were 3to 7 mm in size. These polyps were removed with a cold snare. Resectionand retrieval were complete. Internal hemorrhoids were found during retroflexion. The hemorrhoids were mild. Multiple small polyps, likely hyperplastic, still present in thelower sigmoid colon. Will need removal if sigmoid polyps removed in sigmoid are not hyperplastic. The exam was otherwise without abnormality on direct and retroflexion views. Impression: - One 2 mm polyp in the cecum, removed with a jumbo cold forceps. Resected and retrieved. - Six 3 to 7 mm polyps in the sigmoid colon,removed with a cold snare. Resected and retrieved. - Internal hemorrhoids. - The examination was otherwise normal on directand retroflexion views. Recommendation: - Discharge patient to home. - Resume previous diet. - Continue present medications. - Await pathology results. If sigmoid polyps are adenomatous then will need repeat colonoscopy for further polypectomies in the sigmoid. - Patient has a contact number available for emergencies. The signs and symptoms of potential delayed complications were discussed with thepatient. Return to normal activities tomorrow. Written discharge instructions were provided to thepatient. John Arechiga M.D. John Arechiga M.D. 08/23/2022 12:35:53 PM . Number of Addenda: 0 Note Initiated On: 08/23/2022 11:50 AM Recognized by the [place] [employer] for promoting quality in endoscopy John Arechiga MD ENDOSCOPY PROCEDURES Fin al Result from Last 3 Months or Most Recently Relevant to Health Maintenance Insurance [facility] [id number] [place] [id number] Care Teams Under Cutting Machine Operator Relationship Specialty Start Date End Date Rafaela Johnson MD PCP - General Family Medicine 07/19/22 Unknown, Notinfile 05/17/22
--- OUTSIDE RECORDS SUMMARY | 2024-08-08 19:05 | XMS_ITS | Clinical Summary ---
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 Assessment & Plan (02/21/2023 2:46 PM LIBRARIAN HEAD): Due to continued symptoms, the patient will [...] lexapro Assessment & Plan (04/13/2024 10:19 AM LIBRARIAN HEAD): Improved, but persistently uncontrolled Increase wellbutrin Continue 20mg lexapro Assessment & Plan (01/27/2024 3:31 PM CDT): Uncontrolled Add wellbutrin Continue 20mg lexapro Assessment & Plan (01/17/2023 2:36 PM CDT): Stable Continue 20mg lexapro Assessment & Plan (07/19/2022 3:32 PM CDT): Stable Continue 20mg lexapro Encounters Date Type Department Care Team Description 08/03/2024 Telephone [facility] Primary Care at [address] [place] [phone] Rafaela Johnson MD Recommendation Request 06/28/2024 3:15 PM CDT Office Visit [facility] Pulmonary [address] [place] [phone] Elsa Eubanks NP MANOJ (obstructive sleep apnea) (Primary Dx) 06/15/2024 2:15 PM CDT Office Visit [facility] Primary Care at [address] [place] [phone] Rafaela Johnson MD Depression with anxiety (Primary Dx); Cigarette nicotine dependence without complication; Need for vaccination; Annual physical exam; Class 3 severe obesity due to excess calories with serious comorbidity and body mass index (BMI) of 40.0 to 44.9 in adult (HCC) 05/22/2024 3:15 PM LIBRARIAN HEAD Office Visit [facility] Obstetrical Gynecology [address] [place] [address] [address] [place] [phone] Abbi Jay CNM Well woman exam (Primary Dx) 05/17/2024 2:04 PM LIBRARIAN HEAD - 05/17/2024 11:59 PM LIBRARIAN HEAD Hospital Encounter [address] [id number] Cigarette nicotine dependence without complication; Encounter for screening for lung cancer Discharge Disposition: Discharge to home or self care 05/17/2024 Orders Only [address] [address] Rafaela Johnson MD Pulmonary emphysema, unspecified emphysema type (HCC) (Primary Dx) from Last 3 Months Immunizations Immunization Administration Dates Next Due Hep A, Adult 12/15/2021 Influenza, Quadrivalent, Spl it, Preservative Free, Intramuscular 01/17/2023,02/10/2022,02/12/2021,02/12,02/05/2018 Influenza, Trivalent, IM (MDV) 01/15/2014,2012 Influenza, Trivalent, Preser vative Free, Intramuscular 01/27/2024,02/22/2017,01/18/2016,02/12 Influenza, Unspecified 01/11/2022,2017,02/22/2017,01/17,05/19/2015,02/12/2015 Td, Unspecified 11/24/2002 Tdap 10/20/2015 ZOSTER Recombinant 06/15/2024 Surgical History Surgery Date Site/Laterality Comments TONSILLECTOMY 04/04/1982 - 04/03/1983 THYROID SURGERY BREAST BIOPSY CERVICAL BIOPSY W/ LOOP ELEC TRODE EXCISION CHOLECYSTECTOMY 04/04/2016 - 04/03/2017 Medical History Medical History Date Comments Thyroid disease Hx of abnormal cervical Pap smear Hx of abnormal mammogram Motion sickness Hypothyroidism Depression Family History Medical History Relation Name Comments Lung cancer Father Liver disease Mother Breast cancer Other Grandpa sister Colon cancer Neg Hx Uterine cancer Neg Hx Relation Name Status Comments Father Alive Mother Other Grandpa sister Social History Tobacco Use Types Packs/Day Years [...] on file Legal Sex Female 2:36 AM LIBRARIAN HEAD Gender Identity Not on file Sexual Orientation Not on file Obstetrics History Para Term AB IAB SAB Ectopic Multiple Livin g Live Births 0 0 0 0 0 0 0 0 0 0 0 Comments Menarche:16 Menopause: 2019 Last Filed Vital Signs Vital Sign Reading [...] 06/28/2024 3:02 PM CDT Plan of Treatment Health Maintenance Due Date Last Done Comments Pneumococcal vaccine <65 (1 of 2 - PCV) 08/11/1991 Covid-19 Vaccine (4 - 2023-2 5 season) 2023 05/11/2021, 08/21/2020, 07/31/2020 Zoster Vaccine (2 of 2) 2024 06/15/2024 Breast Cancer Screening-Mammogram 01/03/2025 01/04/2024, 07/23/2022, 07/23/2022, Additional history exists Lung Cancer Screening 05/18/2025 05/17/2024 Regular Well Visit/Exam 18-64 05/22/2025, 01/27/2024, 01/17/2023, Additional history exists Depression Screening 06/15/2025 06/15/2024, 06/15/2024, 04/13/2024, Additional history exists DTaP/Tdap/Td Vaccine (2 - Td or Tdap) 10/19/2025 10/20/2015, 11/24/2002 Cervical Cancer Screening 09/07/2027 09/06/2022 Colon Cancer Screening-Colonoscopy 08/23/20322022 Hepatitis B Screening Completed 01/21/2024 Hepatitis C Screening Completed 01/21/2024 Influenza Vaccine Completed 01/27/2024, , 02/10/2022, Additional history exists Procedures Procedure Name Priority Date/Time Associated Diagnosis Comments CT LUNG CANCER SCREENING Schedule Routine, Read Routine (OP Routine) 05/17/2024 2:18 PM LIBRARIAN HEAD Cigarette nicotine dependence without complication Encounter for [...] CT Lung Cancer Screening (05/17/2024 2:18 PM LIBRARIAN HEAD) Anatomical Region Laterality Modality Chest N/A Computed Tomogra phy 05/17/2024 2:46 PM LIBRARIAN HEAD Narrative 05/17/2024 2:51 PM LIBRARIAN HEAD EXAM DESCRIPTION: CT LUNG CANCER SCREENING REASON [...] Tiffany Rankin D.O. PS: PS Report ID: [id number] Reading Location: [place] [address] Procedure Note Tiffany Rankin DO - 05/17/2024 EXAM DESCRIPTION: CT LUNG [...] Tiffany Rankin D.O. PS: PS Report ID: [id number] Reading Location: [place] [address] Rafaela Johnson MD IM CT PROCEDURES Final [...] MICROBIOLOGY - GENERAL ORDERABLES Final Result [facility] Department [place] [address] * Screening Mammogram Bilateral W Paulo (01/04/2024 [...] age 42, based on guidelines of the [employer] (ACR Practice Parameter for the Performance of Screening and Diagnostic Mammography) and [employer]. For women [...] CDT 09/08/2022 8:33 AM CDT Narrative PATHOLOGY [facility] - 09/10/2022 2:09 PM CDT [facility] Department of Pathology [address] [place] [address] Final Report with Addendum Note to Patients: [...] questions and explain the details. Patient Name: BABS JAY Address: [address] [place] [address] Gender: F : 1970 (Age: 52) Service: Location: [facility] : [id number] [facility] #: [id number] Patient Type: [facility] SPECIMEN Taken: 09/06/2022 Received: 09/08/2022 Accessioned:: 09/09/2022 Reported: 09/10/2022 Physician(s): Meeta Paz M.D. [facility] Diagnosis: SOURCE OF SPECIMEN SCREENING THIN PREP [...] Barnes(ASCP)Report Electronically Reviewed and Signed Out By TANISHA BarnesASC) 09/09/2022 17:06:45 Specimen(s) Received: A: SCREENING THIN [...] determined by the Surgical Pathology Department at [facility] as part of an ongoing quality checker program and in compliance with federally mandated [...] characteristics determined by the Surgical Pathology Department [facility]. It has not been cleared or approved by the U. S. Food and Drug Administration. Meeta Paz MD LAB CYTOLOGY ORDERABLES F inal Result PATHOLOGY [facility] * COLONOSCOPY (08/23/2022 11:50 AM CDT) Anatomical Region Laterality Modality Other Narrative Procedure Note John Arechiga MD - 08/23/2022 11:50 AM CDT [facility] ER GI ENDOSCOPY Patient Name: Babs Jay Procedure Date: 08/23/2022 11:50 AM Date of : 1970 Admit Type: Outpatient Age: 52 Gender: Female Attending MD: John Arechiga M.D. Room: [facility] ENDOSCOPY ROOM 05 Note Status: Finalized Procedure: [...] The scope was passed under direct vision.The [id number] was introduced through theanus and advanced to [...] On: 08/23/2022 11:50 AM Recognized by the [employer] for promoting quality in endoscopy John Arechiga MD ENDOSCOPY PROCEDURES Fin al Result from Last 3 Months or Most Recently Relevant to Health Maintenance [place] [address] [place] [address] [facility] Care Teams Loan Expeditor Relationship Specialty Start Date End Date Rafaela Johnson MD PCP - General Family Medicine 07/19/22 Unknown, Notinfile 05/17/22
--- NOTE | 2024-08-08 19:10 | ED_ITS ---
HPI - Skin/Abscess/Foreign Bdy General Chief complaint: Skin/Abscess/Foreign Body Stated complaint: swelling in face Time Seen by Provider: 08/08/24 19:11 Source: patient Mode of arrival: ambulatory Limitations: no limitations History of Present Illness HPI narrative: 53-year-old female presents with complaint of Swelling and pain to left cheek. symptoms for the past 2-3 days. Afebrile. Pain worse with chewing. Patient reports similar symptoms 2 times in the last 6 months. Was seen at the urgent care. Called her primary care physician asking for ENT referral as she needs it for her [employer] insurance, still waiting on referral. All systems reviewed and negative except as noted above. Related Data Home Medications ?Medication ?Instructions ?Recorded ?Confirmed ?Last Taken ?Type bupropion HCl 300 mg 24 hr tablet, mg PO 08/08/24 Unknown History extended release escitalopram oxalate 20 mg tablet mg 08/08/24 Unknown History levothyroxine 150 mcg tablet mcg 08/08/24 Unknown History (Synthroid) Allergies Allergy/AdvReac Type Severity Reaction Status Date / Time No Known Allergies Allergy Verified 08/08/24 19:06 Review of Systems Review of Systems: CONSTITUTIONAL: Denies fever, chills, or sweats. EYES: Denies visual changes, redness, or discharge. ENT: Denies rhinorrhea, congestion, sore throat, or otalgia. Reports pain and swelling to left cheek CARDIOVASCULAR: Denies chest pain, palpitations, or edema. RESPIRATORY: Denies cough or dyspnea. GASTROINTESTINAL: Denies abdominal pain, nausea, vomiting, or diarrhea. GENITOURINARY: Denies dysuria or hematuria. SKIN: Denies rash or itching. MUSCULOSKELETAL: Denies back pain, joint pain, or myalgia. NEUROLOGIC: Denies headache, numbness, or weakness. PSYCHIATRIC: Denies anxiety or depression. All other systems reviewed are negative, except as documented in HPI. PMFSH Comments At time of signature, agree with nursing past medical, surgical, social and family history. There is no relevant family history pertinent to the presenting complaint. Exam Narrative: GENERAL: This is a well-nourished, well-developed patient, in no apparent distress. HEAD: normocephalic, atraumatic. FACIAL: swelling and tenderness to left parotid gland EYES: PERRL. Sclera clear/white. Vision is grossly intact. EARS: External ears normal, auditory canals clear and without drainage, TMs normal without perforation. Hearing grossly intact. NOSE: External nose normal NECK: Neck supple, non-tender without lymphadenopathy, masses or thyromegaly. CARDIOVASCULAR: Regular rate and rhythm without murmurs, gallops, or rubs. RESPIRATORY: Clear to auscultation. Breath sounds equal bilaterally. No wheezes, rales, or rhonchi. SKIN: warm, Dry, intact with no suspicious lesions or rash, good texture and turgor. NEURO: awake, alert, and oriented to person, place and time. There were no obvious focal neurologic abnormalities. EXTREMITIES: No joint tenderness, effusion, or edema noted. Course Course Level of Care: Express Care Visit Vital Signs Vital signs: Vital Signs Temperature 36.3 C L 08/08/24 19:11 Pulse Rate 65 08/08/24 19:11 Respiratory Rate 18 08/08/24 19:11 Blood Pressure 126/60 08/08/24 19:11 Pulse Oximetry 99 08/08/24 19:11 Oxygen Delivery Room Air 08/08/24 19:11 Temperature 36.3 C L 08/08/24 19:11 Pulse Rate 65 08/08/24 19:11 Respiratory Rate 18 08/08/24 19:11 Blood Pressure 126/60 08/08/24 19:11 Pulse Oximetry 99 08/08/24 19:11 Oxygen Delivery Room Air 08/08/24 19:11 reviewed MDM - Skin/Abscess/Foreign Bdy MDM Narrative Medical decision making narrative: will treat parotitis with augmention. pt stating this is third time she has had pain and swelling to parotid gland. Will refer to ENT. pt is well appearing, nontoxic. no difficulty swallowing. Discharge Plan Discharge Clinical Impression: Acute parotitis Patient Disposition: Home Condition: Stable Instructions: Antibiotic Form, Parotid Duct Obstruction (ED), Sialoadenitis (ED) Additional Instructions: Parotitis is a term used to describe parotid gland swelling. Your parotid glands are salivary glands located between your jaw and ear. Parotitis causes include viral and bacterial infections, salivary gland stones and dental problems. Take antibiotic as prescribed until gone. Take tylenol or ibuprofen every 6 to 8 hours to treat your pain. Apply warm compress and gently massage. Follow up with ENT specialist. Patient Language: Tuvaluan Prescriptions: New amoxicillin-pot clavulanate 875-125 mg tablet 1 tablet PO Q12H 10 Days Qty: 20 0RF No Action levothyroxine [Synthroid] 150 mcg tablet escitalopram oxalate 20 mg tablet bupropion HCl 300 mg tablet extended release 24 hr PO Follow-up/Referrals: Alex,Rafaela Enciso MD [Primary Care Provider] - Luciano Soto MD [Physician] - ( follow-up with ENT specialist at next available appointment for further evaluation) Time of Disposition: 19:21
[2024-08-08 19:11] VITALS: BP 126/60; PULSE 65; RESP 18; TEMP 36.3; O2SAT 99
== END 2024-08-08 19:22 | disposition home or self-care (01) ==
PROVIDERS: Emergency Provider Nurse Practitioner Family; PCP Hospitalist
DX: K11.21 Acute sialoadenitis (principal); G47.33 Obstructive sleep apnea (adult) (pediatric); K21.9 Gastro-esophageal reflux disease without esophagitis; E03.9 Hypothyroidism, unspecified; Z86.16 Personal history of COVID-19
CPT/HCPCS: 99203; G0463